=== PATIENT | male | born 1970 ===

== ENCOUNTER 2020-07-03 06:05 | Day surgery (SDC) | payer OTHER ==
[~2020-07-03 06:05] MED LIST: COZAAR100 MG PO
[2020-07-03] MEDS ORDERED: PERCOCET 5-3251 EACH PO (12:37)
== END 2020-07-03 16:00 | disposition home or self-care (01) ==
LOC: CIR.AMB 06:05
PROVIDERS: ATTEND Surgery
DX: K60.3 Anal fistula (principal)